=== PATIENT | male | born 1990 | race Caucasian/White ===

== ENCOUNTER 2018-07-12 22:09 | Emergency (ER) | payer MEDICAID ==
[2018-07-12] MEDS ORDERED: Sodium Chloride 0.9% 10 ML Syringe FLUSH PRN (22:58)
[2018-07-12] MEDS ORDERED: Prochlorperazine 10 MG/2 ML SDV IVPUSH ONE (22:58)
[2018-07-12] MEDS ORDERED: Sodium Chloride 0.9% 1,000 ML IV ONE (22:58)
[2018-07-12] MEDS ORDERED: diphenhydrAMINE 50 MG/ML SDV IVPUSH ONE (22:58)
--- NOTE | 2018-07-13 00:24 | EDM.PDOC ---
ED HPI GENERAL MEDICAL PROBLEM - General Chief Complaint: Gastrointestinal Problem Stated Complaint: VOMITING Time Seen by Provider: 07/12/18 22:50 Source of Information: Reports: Patient History Limitations: Reports: No Limitations - History of Present Illness INITIAL COMMENTS - FREE TEXT/NARRATIVE: vomiting for past 2 days. history of cyclic vomiting. Last smoked marijuana yesterday. Nothing different about this episode. He says Zofran and benadryl seem to help. Generalized Pain Score (Numeric/FACES): 8 - Related Data Allergies Allergy/AdvReac Type Severity Reaction Status Date / Time No Known Allergies Allergy Verified 07/12/18 22:28 Home Meds: Home Meds NK [No Known Home Meds] 07/12/18 [History] Past Medical History HEENT History: Reports: Impaired Vision Gastrointestinal History: Reports: Other (See Below) Other Gastrointestinal History: Pasy hx of vomiting Psychiatric History: Reports: Anxiety - Infectious Disease History Infectious Disease History: Reports: Chicken Pox - Past Surgical History GI Surgical History: Reports: Colonoscopy, EGD Musculoskeletal Surgical History: Reports: Hip Replacement Social & Family History - Tobacco Use Smoking Status *Q: Current Some Day Smoker Years of Tobacco use: 2 Packs/Tins Daily: 0.2 Used Tobacco, but Quit: No Second Hand Smoke Exposure: Yes - Caffeine Use Caffeine Use: Reports: Coffee, Energy Drinks, Soda - Recreational Drug Use Recreational Drug Use: Yes Drug Use in Last 12 Months: Yes Recreational Drug Type: Reports: Marijuana/Hashish Recreational Drug Use Frequency: Socially ED ROS GENERAL - Review of Systems Review Of Systems: ROS reveals no pertinent complaints other than HPI. ED EXAM, GI/ABD - Physical Exam Exam: See Below Exam Limited By: No Limitations General Appearance: Alert, WD/WN, Mild Distress (frequent dry heaves) Eyes: Bilateral: Normal Appearance Throat/Mouth: Normal Inspection Neck: Normal Inspection Respiratory/Chest: Lungs Clear Cardiovascular: Regular Rate, Rhythm GI/Abdominal Exam: Normal Bowel Sounds, Non-Tender Back Exam: Normal Inspection Extremities: Normal Inspection Neurological: Alert, Oriented Psychiatric: Normal Affect Skin Exam: Warm, Dry Course - Vital Signs Last Recorded V/S: Last Vital Signs Temp 36.3 C 07/12/18 22:33 Pulse 58 L 07/12/18 22:33 Resp 16 07/12/18 22:33 BP 161/67 H 07/12/18 22:33 Pulse Ox 99 07/12/18 22:33 - Orders/Labs/Meds Orders: Active Orders 24 hr Category Date Time Status Sodium Chloride 0.9% [Saline Flush] Med 07/12/18 22:58 Active 10 ml FLUSH ASDIRECTED PRN Saline Lock Insert [OM.PC] Urgent Oth 07/12/18 22:58 Ordered Medication Orders Sodium Chloride (Saline Flush) 10 ml FLUSH ASDIRECTED PRN PRN Reason: Keep Vein Open Meds: Medications Generic Name Dose Route Start Last Admin Trade Name Freq PRN Reason Stop Dose Admin Sodium Chloride 10 ml 07/12/18 22:58 Saline Flush FLUSH ASDIRECTED PRN Keep Vein Open Discontinued Medications Generic Name Dose Route Start Last Admin Trade Name Freq PRN Reason Stop Dose Admin Diphenhydramine HCl 50 mg 07/12/18 22:58 07/12/18 23:11 Benadryl IVPUSH 07/12/18 22:59 50 mg ONETIME ONE Administration Sodium Chloride 1,000 mls @ 999 mls/hr 07/12/18 22:58 07/12/18 23:09 Normal Saline IV 07/12/18 23:58 999 mls/hr .BOLUS ONE Administration Prochlorperazine Edisylate 10 mg 07/12/18 22:58 07/12/18 23:17 Compazine IVPUSH 07/12/18 22:59 10 mg ONETIME ONE Administration - Re-Assessments/Exams Free Text/Narrative Re-Assessment/Exam: 07/13/18 00:21 He received 1 liter iv NS and 10 mg Compazine and 50 mg Benadryl IV. Feels a little better and no more dry heaves. Departure - Departure Time of Disposition: 00:22 Disposition: Home, Self-Care 01 Condition: Fair Clinical Impression: Cyclic vomiting syndrome - Discharge Information Referrals: PCP,None [Primary Care Provider] - Additional Instructions: Clear liquid diet next 24 hours. Use Zofran as directed for nausea. Take Benadryl as in the past. See your docotor or return to ER if needed. Avoid marijuana. - My Orders Last 24 Hours: My Active Orders 07/12/18 22:58 Sodium Chloride 0.9% [Saline Flush] 10 ml FLUSH ASDIRECTED PRN Saline Lock Insert [OM.PC] Urgent - Assessment/Plan Last 24 Hours: My Active Orders 07/12/18 22:58 Sodium Chloride 0.9% [Saline Flush] 10 ml FLUSH ASDIRECTED PRN Saline Lock Insert [OM.PC] Urgent
[2018-07-13 00:36] VITALS: BP 139/68
== END 2018-07-13 00:37 | disposition home or self-care (01) ==
LOC: JP.ED 22:09
DX: G43.A0 Cyclical vomiting, in migraine, not intractable (principal); F17.210 Nicotine dependence, cigarettes, uncomplicated
CPT/HCPCS: 96361; 96374; 96375; 99284; J0780; J1200; J7030